=== PATIENT | female | born 1990 ===

== ENCOUNTER 2017-06-22 10:40 | Emergency (ER) | payer MEDICAID ==
[2017-06-22 10:49] VITALS: RESP 18; TEMP 98; BMI 30.7
--- NOTE | 2017-06-22 12:17 | ED PDOC ---
Arrival/HPI - General Chief Complaint: Abdominal Pain Time Seen by Provider: 06/22/17 12:00 Historian: Patient - History of Present Illness Narrative History of Present Illness (Text): 06/22/17 12:00 This 26 yo female, 17 weeks gravid, A1, presents to this ED c/o vaginal spotting, and sharp pelvic pain x 1 day. Patient stated pain woke her up form bed this morning. Patient stated pelvic pain is sharp, b/l, and worsen with movement. Patient denies other complains. Denies sob, cp, urinary symptoms, vaginal discharge, fever, n/v, or abnormal gait. Time/Duration: Other (1 day) Quality: Other (sharp) Context: Home Past Medical History - Provider Review Nursing Documentation Reviewed: Yes - Infectious Disease Hx of Infectious Diseases: None - Cardiac Hx Cardiac Disorders: No - Pulmonary Hx Respiratory Disorders: No - Neurological Hx Neurological Disorder: No - HEENT Hx HEENT Disorder: No - Renal Hx Renal Disorder: No - Endocrine/Metabolic Hx Endocrine Disorders: No - Hematological/Oncological Hx Blood Disorders: No - Integumentary Hx Dermatological Disorder: No - Musculoskeletal/Rheumatological Hx Musculoskeletal Disorders: No - Gastrointestinal Hx Gastrointestinal Disorders: No - Genitourinary/Gynecological Hx Genitourinary Disorders: No - Psychiatric Hx Psychophysiologic Disorder: Yes Hx Anxiety: Yes Hx Substance Use: No - Surgical History Hx Section: Yes (1) Other/Comment: Miscarriage - Anesthesia Hx Anesthesia: Yes Hx Anesthesia Reactions: No Hx Malignant Hyperthermia: No - Suicidal Assessment Feels Threatened In Home Enviroment: No Family/Social History - Physician Review Nursing Documentation Reviewed: Yes Family/Social History: Other (non-contributory) Smoking Status: Former Smoker Hx Alcohol Use: No Hx Substance Use: No Allergies/Home Meds Allergies/Adverse Reactions: Allergies peanut Allergy (Verified 06/22/17 11:28) SWELLING Review of Systems - Review of Systems Constitutional: Normal. absent: Fatigue, Weight Change, Fevers Eyes: Normal ENT: Normal. absent: Sore Throat, Rhinorrhea Respiratory: Normal. absent: SOB, Cough, Sputum, Wheezing Cardiovascular: Normal. absent: Chest Pain, Palpitations, Edema, Calf Pain, CRUZ , Orthopnea, Syncope Gastrointestinal: Other (b/l pelvic pain). absent: Nausea, Vomiting Genitourinary Female: Vaginal Bleeding. absent: Dysuria, Frequency, Hematuria, Vaginal Discharge Musculoskeletal: Normal Skin: Normal. absent: Rash, Pruritis, Skin Lesions Neurological: Normal. absent: Headache, Dizziness, Focal Weakness, Gait Changes , Speech Changes, Facial Droop, Disequilibrium, Seizure Endocrine: Normal Hemo/Lymphatic: Normal Psychiatric: Normal Physical Exam Vital Signs Temp Pulse Resp BP Pulse Ox 06/22/17 14:00 75 18 104/62 99 06/22/17 12:03 61 18 104/65 100 06/22/17 10:47 98.0 F 66 18 102/60 100 Temperature: Afebrile Blood Pressure: Normal Pulse: Regular Respiratory Rate: Normal Appearance: Positive for: Well-Appearing, Non-Toxic, Comfortable Pain Distress: None Mental Status: Positive for: Alert and Oriented X 3 - Systems Exam Head: Present: Atraumatic, Normocephalic Pupils: Present: PERRL Extroacular Muscles: Present: EOMI Conjunctiva: Present: Normal Mouth: Present: Moist Mucous Membranes Neck: Present: Normal Range of Motion Respiratory/Chest: Present: Clear to Auscultation, Good Air Exchange. No: Respiratory Distress, Accessory Muscle Use Cardiovascular: Present: Regular Rate and Rhythm, Normal S1, S2. No: Murmurs Abdomen: Present: Normal Bowel Sounds, Other (mild b/l pelvic and suprapubic tenderness.). No: Distention, Peritoneal Signs, Rebound, Guarding Back: Present: Normal Inspection. No: CVA Tenderness, Midline Tenderness, Paraspinal Tenderness Upper Extremity: Present: Normal Inspection, Normal ROM, NORMAL PULSES, Neurovascularly Intact, Capillary Refill < 2s. No: Cyanosis, Edema Lower Extremity: Present: Normal Inspection, NORMAL PULSES, Normal ROM, Neurovascularly Intact, Capillary Refill < 2 s. No: Edema, CALF TENDERNESS Neurological: Present: GCS=15, CN II-XII Intact, Speech Normal, Motor Func Grossly Intact, Normal Sensory Function, Normal Cerebellar Funct, Gait Normal, Memory Normal Skin: Present: Warm, Dry, Normal Color. No: Rashes Psychiatric: Present: Alert, Oriented x 3, Normal Insight, Normal Concentration Medical Decision Making ED Course and Treatment: 06/22/17 14:08 Re-evaluation. Patient feels better. Discussed results and plan with patient who expresses understanding. All questions answered and there is agreement with the plan to discharge home with instructions. Patient stable for discharge. Return if symptoms persist or worsen. I reviewed UA report with patient . I told patient urine specimen appears contaminated, however, since she is with mild pelvic pain, I will recommend prophylactic ABX. She understood to review urine culture in 3-5 days with [facility] Re-evaluation Time: 14:08 Reassessment Condition: Re-examined, Improved - Lab Interpretations Microbiology Results: Microbiology Results 06/22/17 12:40 Urine Urine Culture - Final No Growth (<1,000 CFU/ML) Lab Results: 06/22/17 12:40 06/22/17 12:40 Lab Results 06/22/17 12:40: Beta HCG, Quant [id number] H 06/22/17 12:40: Sodium 136, Potassium 4.0, Chloride 103, Carbon Dioxide 26, Anion Gap 11, BUN 7, Creatinine 0.5, Est GFR ( Amer) > 60, Est GFR (Non- Af Amer) > 60, Random Glucose 73, Calcium 9.1, Total Bilirubin 0.5, AST 25, ALT 27, Alkaline Phosphatase 59, Total Protein 6.7, Albumin 3.6, Globulin 3.1, Albumin/Globulin Ratio 1.2 06/22/17 12:40: Urine Color Yellow, Urine Appearance Cloudy, Urine pH 7.0, Ur Specific [place] 1.015, Urine Protein Trace H, Urine Glucose (UA) Negative, Urine Ketones Negative, Urine Blood Negative, Urine Nitrate Negative, Urine Bilirubin Negative, Urine Urobilinogen 1.0 H, Ur Leukocyte Esterase Moderate H, Urine RBC 0 - 2, Urine WBC 2 - 5, Ur Epithelial Cells 10 - 12, Urine Bacteria Few, Urine HCG, Qual Positive 06/22/17 12:40: PT 10.8, INR 1.00, APTT 28.1 06/22/17 12:40: WBC 9.5, RBC 3.91, Hgb 11.9 L, Hct 34.2 L, MCV 87.5, MCH 30.4, MCHC 34.8, RDW 12.7, Plt Count 194, MPV 9.4, Gran % 70.2 H, Lymph % (Auto) 20.7 L, [place] % (Auto) 5.3, Eos % (Auto) 3.6, Baso % (Auto) 0.2, Gran # 6.67 H, Lymph # 2.0, [place] # 0.5, Eos # 0.3, Baso # 0.02 I have reviewed the lab results: Yes Interpretation: Abnormal lab values (possible UTI) - RAD Interpretation Narrative RAD Interpretations (Text): 06/22/17 14:09 . Radiology Orders: 06/22/17 12:20 AGE [US] Stat - Medication Orders Current Medication Orders: Discontinued Medications Cephalexin Monohydrate (Keflex) 500 mg PO STAT STA PRN Reason: Protocol Stop: 06/22/17 14:01 Last Admin: 06/22/17 14:14 Dose: 500 mg Disposition/Present on Arrival - Present on Arrival Any Indicators Present on Arrival: No History of DVT/PE: No History of Uncontrolled Diabetes: No Urinary Catheter: No History of Decub. Ulcer: No History Surgical Site Infection Following: None - Disposition Have Diagnosis and Disposition been Completed?: Yes Diagnosis: Pelvic pain affecting Disposition: HOME/ ROUTINE Disposition Time: 14:09 Patient Plan: Discharge Condition: GOOD Discharge Instructions (ExitCare): Pelvic Pain (ED) Additional Instructions: Call Private [facility] doctor office for follow up visit in 2-3 days. Take medication as instructed. Return to Emergency department if pain worsen, or new symptoms develop Prescriptions: Cephalexin [cephalexin] 500 mg PO BID #10 cap Referrals: Jose Moss Jr., MD [Primary Care Provider] - Follow up with primary [facility] [Outside] - [facility] with [facility] [Outside] - Follow up with primary Forms: [employer] (Hungarian), WORK NOTE
[2017-06-22 13:08] LABS: URINE BILIRUBIN NEGATIVE (NEGATIVE); URINE BLOOD NEGATIVE (NEGATIVE); URINE GLUCOSE (UA) NEGATIVE (NEGATIVE); URINE KETONE NEGATIVE (NEGATIVE); URINE LEUKOCYTE ESTERASE MODERATE Leu/uL (NEGATIVE); URINE PROTEIN TRACE mg/dL (<30 mg/dL)
[2017-06-22 13:10] LABS: BASO # 0.02 K/mm3 (0.0-2.0); BASO % 0.2 % (0.0-3.0); EOS # 0.3 (0.0-0.7); EOS % 3.6 % (1.5-5.0); GRAN # 6.67 (1.4-6.5); GRAN % 70.2 % (50.0-68.0); HEMATOCRIT 34.2 % (36.0-48.0); LYMPH % 20.7 % (22.0-35.0); MEAN CELL VOLUME 87.5 fl (80.0-105.0); MEAN CORPUSCULAR HEMOGLOBIN 30.4 pg (25.0-35.0); MEAN CORPUSCULAR HGB CONC 34.8 g/dl (31.0-37.0); MEAN PLATELET VOLUME 9.4 fl (7.0-11.0); MONO # 0.5 (0.1-0.6); MONO % 5.3 % (1.0-6.0); RED CELL DISTRIBUTION WIDTH 12.7 % (11.5-14.5); WHITE BLOOD COUNT 9.5 10^3/ul (4.5-11.0)
[2017-06-22 13:13] LABS: ALB/GLOB RATIO 1.2 (1.1-1.8); ALKALINE PHOSPHATASE 59 U/L (38-126); ALT/SGPT 27 U/L (7-56); AST/SGOT 25 U/L (14-36); BILIRUBIN,TOTAL 0.5 mg/dL (0.2-1.3); BLOOD UREA NITROGEN 7 mg/dL (7-21); CALCIUM 9.1 mg/dL (8.4-10.5); CARBON DIOXIDE 26 mmol/L (21-33); CHLORIDE 103 mmol/L (98-107); GFR AFRICAN-AMERICAN > 60; GLUCOSE,RANDOM 73 mg/dL (70-110); SODIUM 136 mmol/L (132-148); TOTAL PROTEIN 6.7 g/dL (5.8-8.3)
[2017-06-22 13:15] LABS: PARTIAL THROMBOPLASTIN TIME 28.1 Seconds (23.7-30.8)
[2017-06-22 13:21] LABS: URINE APPEARANCE CLOUDY (CLEAR); URINE COLOR YELLOW (YELLOW)
[2017-06-22 13:37] LABS: URINE BACTERIA FEW (NEG); URINE RBC 0 - 2 /hpf (0-2)
[2017-06-22 14:04] VITALS: BP 104/62; PULSE 75; O2SAT 99
--- NOTE | 2017-06-23 09:11 | US ---
PROCEDURE: HISTORY: pelvic pain COMPARISON: TECHNIQUE: FINDINGS: There is a single live intrauterine fetus in cephalic presentation with a posterior placenta the amniotic fluid is within normal limits. heart motion is observed. Estimated gestational age is 16 weeks and 3 days based on the BPD. The uterus is otherwise unremarkable. The neck is are unremarkable. IMPRESSION: As above.
== END 2017-06-22 14:34 | disposition home or self-care (01) ==
LOC: ED 10:40
DX: O23.12 Infections of bladder in pregnancy, second trimester (principal); R10.2 Pelvic and perineal pain; Z3A.17 17 weeks gestation of pregnancy